=== PATIENT | male | born 1995 | race Caucasian/White ===

== ENCOUNTER → 2020-07-18 | Outpatient (CLI) | payer BC, OTHER ==
--- NOTE | 2020-07-19 09:13 | CT ---
EXAM DESCRIPTION: Head CLINICAL HISTORY: COVID-19 COMPARISON: None TECHNIQUE: Noncontrast transaxial CT images of the head are obtained from base to vertex. This exam was performed according to our departmental dose-optimization program, which includes automated exposure control, adjustment of the mA and/or kV according to patient size and/or use of iterative reconstruction technique. FINDINGS: The midline structures are not displaced. The sulci are age appropriate. The lateral, third, and fourth ventricles are normal in size, shape, and anatomic positioning. There is no evidence of mass, mass effect, hydrocephalus, or acute intracranial hemorrhage. No abnormal extra axial fluid collections are seen. Normal blount-white differentiation is seen. The visualized bone windows show no depressed skull fracture or significant abnormality. The visualized paranasal sinuses and mastoid air cells are clear. IMPRESSION: 1. No acute abnormality is seen on noncontrast CT of the head. Electronically signed by: Irvin Prather MD 07/19/2020 9:12 AM COP
== END ==
LOC: CT 10:58
PROVIDERS: ATTEND Family Medicine
DX: U07.1 COVID-19 (principal); R71.8 Other abnormality of red blood cells; R09.02 Hypoxemia